=== PATIENT | male | born 1970 | race Caucasian/White ===

== ENCOUNTER 2018-02-12 16:05 | Emergency (ER) | payer BC ==
[~2018-02-12] VITALS: Ht 185.4 cm; Wt 114.8 kg
[2018-02-12 17:38] VITALS: BP 156/102
== END 2018-02-12 17:39 | disposition home or self-care (01) ==
LOC: M.ERS 16:05
DX: S92.334A Nondisplaced fracture of third metatarsal bone, right foot, initial encounter for closed fracture (principal); X58.XXXA Exposure to other specified factors, initial encounter; Y93.89 Activity, other specified; Y92.89 Other specified places as the place of occurrence of the external cause; Y99.8 Other external cause status

== ENCOUNTER → 2020-05-20 | Outpatient (CLI) | payer BC | LOC: M.LAB 08:30 | PROVIDERS: ATTEND Internal Medicine Gastroenterology | DX: Z01.812 Encounter for preprocedural laboratory examination (principal); Z11.59 Encounter for screening for other viral diseases; Z12.11 Encounter for screening for malignant neoplasm of colon ==

== ENCOUNTER → 2020-09-15 | Outpatient (CLI) | payer BC | LOC: M.LAB 14:15 | PROVIDERS: ATTEND Orthopaedic Surgery | DX: Z01.812 Encounter for preprocedural laboratory examination (principal); Z20.828 Contact with and (suspected) exposure to other viral communicable diseases; M23.204 Derangement of unspecified medial meniscus due to old tear or injury, left knee ==